=== PATIENT | female | born 1995 | race Hispanic/Latino ===

== ENCOUNTER 2023-12-01 10:50 | Emergency (ER) | payer BC, OTHER ==
[~2023-12-01] VITALS: Ht 149.9 cm; Wt 81.6 kg
[2023-12-01 11:10] VITALS: BP 133/83; PULSE 86
[2023-12-01] MEDS: ACETAMINOPHEN 325 MG TAB PO ONE (13:10)
[2023-12-01] MEDS: ACETAMINOPHEN 325 MG TAB ONE (13:10)
[2023-12-01] MEDS: LIDOCAINE HCL 1% 20 ML VIAL INJ SCH (14:07)
[2023-12-01] MEDS ORDERED: ACET-66 PO (14:16)
[2023-12-01] MEDS ORDERED: CEPH500B PO (14:16)
[2023-12-01] MEDS: NEOMY SULF/BACITRA/POLYMYXIN B 1 EACH PACKET TP ONE (14:21)
[2023-12-01] MEDS: TETANUS/DIPHTHERIA TOXOID [ADULT] 0.5 ML VIAL IM ONE (14:34)
== END 2023-12-01 14:36 | disposition home or self-care (01) ==
LOC: EDH 10:50
DX: S91.012A Laceration without foreign body, left ankle, initial encounter (principal); Z79.899 Other long term (current) drug therapy; W18.39XA Other fall on same level, initial encounter; Y93.89 Activity, other specified; Y92.89 Other specified places as the place of occurrence of the external cause; Y99.8 Other external cause status
CPT/HCPCS: 12002; 73610; 90471; 90714